=== PATIENT | female | born 1945 | race Caucasian/White ===

== ENCOUNTER → 2017-11-18 | Outpatient (CLI) | payer MEDICARE, BC | LOC: MC.RAD 13:46 | DX: Z12.31 Encounter for screening mammogram for malignant neoplasm of breast (principal) ==

== ENCOUNTER → 2019-03-16 | Outpatient (CLI) | payer MEDICARE, BC | LOC: MC.RAD 08:40 | DX: Z12.31 Encounter for screening mammogram for malignant neoplasm of breast (principal) ==

== ENCOUNTER → 2021-02-02 | Outpatient (CLI) | payer MEDICARE, BC | LOC: COL.RAD 08:13 | DX: N18.32 Chronic kidney disease, stage 3b (principal) ==

== ENCOUNTER → 2021-02-16 | Outpatient (CLI) | payer MEDICARE, BC | LOC: MC.RAD 11:15 | DX: Z12.31 Encounter for screening mammogram for malignant neoplasm of breast (principal) ==

== ENCOUNTER → 2022-03-06 | Outpatient (CLI) | payer MEDICARE, BC | LOC: MC.RAD 07:22 | DX: Z12.31 Encounter for screening mammogram for malignant neoplasm of breast (principal) ==

== ENCOUNTER → 2022-05-09 | Outpatient (RCR) | payer MEDICARE, BC | LOC: MKS.ESL.PT | DX: M70.50 Other bursitis of knee, unspecified knee (principal) ==